=== PATIENT | female | born 1995 | race Caucasian/White ===

== ENCOUNTER → 2023-09-21 14:56 | Outpatient (REF) | payer BC, SELFPAY | LOC: PNTC 14:56 | PROVIDERS: ATTENDING PHYSICIAN Obstetrics & Gynecology | DX: Z36.0 Encounter for antenatal screening for chromosomal anomalies (principal); Z36.82 Encounter for antenatal screening for nuchal translucency | CPT/HCPCS: 76801; 76813 ==

== ENCOUNTER → 2023-11-09 15:57 | Outpatient (REF) | payer BC, SELFPAY | LOC: PNTC 15:57 | PROVIDERS: ATTENDING PHYSICIAN Obstetrics & Gynecology | DX: Z36.0 Encounter for antenatal screening for chromosomal anomalies (principal); Z34.90 Encounter for supervision of normal pregnancy, unspecified, unspecified trimester | CPT/HCPCS: 76805 ==

== ENCOUNTER 2024-03-26 19:34 | Inpatient (IN) | payer BC, SELFPAY ==
[2024-03-26 20:08] LABS: % Basophils 0.3 % (0-2); % Eosinophils 1.3 % (0-6); % Immature Granulocytes 1.1 % (0-0.5); % Monocytes 12.2 % (1.7-9.3); % Neutrophils 61.1 % (42.2-75.2); Absolute Eosinophils 0.1 10^3/uL (0-0.7); Absolute Immature Granulocytes 0.1 10^3/uL (0-0.05); Absolute Lymphocytes 2.5 10^3/uL (1.2-3.4); Absolute Monocytes 1.3 10^3/uL (0.1-0.6); Absolute Neutrophils 6.4 10^3/uL (1.4-6.5); Hematocrit 37.6 % (37.0-47.0); Hemoglobin 13.4 g/dL (12.0-16.0); Mean Corp Hgb Conc. 35.6 g/dL (33.0-37.0); Mean Corpuscular Hgb 35.3 pg (27.0-31.0); Mean Corpuscular Volume 98.9 fL (81.0-99.0); Mean Platelet Volume 9.4 fL (7.4-10.4); Nucleated Red Blood Cells % 0 %; Platelet Count 189 10^3/uL (130-400); White Blood Cell Count 10.5 10^3/uL (4.8-10.8)
[2024-03-26 20:20] VITALS: BP 115/91; BMI 27.5
[2024-03-26] MEDS: CYTOTEC 50 MICROGRAM VAG (21:28)
[2024-03-27] MEDS: SUBLIMAZE 100 MCG EPIDURAL (04:24)
[2024-03-27] MEDS: FENTANYL/BUPIVACAINE 100 EPIDURAL (04:24)
[2024-03-27] MEDS: PITOCIN 30 UNITS/NSS 500 ML IV (05:34)
[2024-03-27] MEDS: LR 1000 IV (05:34)
[2024-03-27] MEDS: MOTRIN 600 MG PO ×2 (09:28→16:01)
[2024-03-27] MEDS: SENOKOT-S 1 TABLET PO (12:15)
[2024-03-27] MEDS: TYLENOL 650 MG PO (20:30)
[2024-03-28] MEDS: MOTRIN 600 MG PO ×2 (00:38→09:12)
[2024-03-28 04:58] LABS: Hematocrit 30.7 % (37.0-47.0); Hemoglobin 11.1 g/dL (12.0-16.0)
[2024-03-28] MEDS: SENOKOT-S 1 TABLET PO (09:13)
[2024-03-28 11:31] LABS: Syphilis/T. pallidum Ab Reflex Negative (Negative)
== END 2024-03-28 12:19 | disposition home or self-care (01) | DRG 807 ==
LOC: LDRP 19:34
PROVIDERS: ADMITTING PHYSICIAN Obstetrics & Gynecology; FAMILY PHYSICIAN Family Medicine
PROC: 3E0P7VZ Introduction of Hormone into Female Reproductive, Via Natural or Artificial Opening (ICD-10-PCS; 2024-03-26)
PROC: 4A1HXCZ Monitoring of Products of Conception, Cardiac Rate, External Approach (ICD-10-PCS; 2024-03-27)
PROC: 0HQ9XZZ Repair Perineum Skin, External Approach (ICD-10-PCS; 2024-03-27)
PROC: 10E0XZZ Delivery of Products of Conception, External Approach (ICD-10-PCS; 2024-03-27)
PROC: 0UQG7ZZ Repair Vagina, Via Natural or Artificial Opening (ICD-10-PCS; 2024-03-27)
DX: O48.0 Post-term pregnancy (principal); Z37.0 Single live birth; O70.0 First degree perineal laceration during delivery; Z3A.40 40 weeks gestation of pregnancy
CPT/HCPCS: 36415; 85014; 85018; 85025; 86780; 86850; 86900; 86901

== ENCOUNTER 2025-01-13 13:53 | Emergency (ER) | payer BC, SELFPAY ==
[2025-01-13 14:07] VITALS: BP 126/82
--- NOTE | 2025-01-13 15:08 | ED.GENMED ---
History of Present Illness
General
Chief Complaint: Swelling
Time Seen by Provider: 01/13/25 15:08
History of Present Illness
History of Present Illness:
FOCUSED PAST MEDICAL HISTORY
- The patient has no significant past medical history
REVIEW OF OLD RECORDS
- The patient was here and gave here in March 2024
Note:
CHIEF COMPLAINT(S)
Swelling and tingling sensation in the right forearm.
HISTORY OF PRESENT ILLNESS
The patient is a 30-year-old female who has presented with concerns of swelling and a tingling sensation in the right forearm. These symptoms began approximately one hour prior while she was showering. The patient describes the swelling as appearing
suddenly with visible swelling and a lump-like formation mostly in the forearm area. She noted a tingling and numb sensation associated with the swelling, though she reports no recent intravenous access or associated trauma. She expresses concern
about the possibility of a blood clot but reports that the swelling has since improved significantly. Upon examination, the patient denies any associated rash or itching. The possibility of an allergic reaction was considered, but is deemed unlikely
due to the absence of itching. The patient had recently been exercising but did not perform activities specifically involving the arms. The forearm feels slightly warmer to the touch near the right elbow compared to the left side, prompting
consideration of possible cellulitis or bursitis. The patient is and is willing to start antibiotics.
REVIEW OF SYSTEMS
- Skin: Swelling and warmth noted in the right forearm, described as a lump.
- Neurological: Tingling sensation in the affected area which has improved.
- Musculoskeletal: Mild tenderness noted, especially with movement.
PHYSICAL EXAM
General: Alert, no acute distress.
Skin: Warm to touch near the right elbow compared to the opposite side, no rash.
Head: Normocephalic, atraumatic.
Neck: Supple, trachea midline.
Eye Ears, nose, mouth and throat: Oral mucosa moist.
Cardiovascular: Normal peripheral perfusion, no edema.
Respiratory: Respirations are non-labored.
Gastrointestinal: Abdomen nondistended.
Back: Normal range of motion, normal alignment.
Musculoskeletal: I see no circumferential size difference between both upper extremities, there is some warmth near the elbow/proximal right forearm however there is no overlying erythema and only minimal if any tenderness., No evidence for
olecranon bursitis. No significant bony tenderness. The active range of motion is fairly normal.
Neurological: Alert and oriented to person, place, time, and situation, no focal neurological deficit observed.
Psychiatric: Cooperative, appropriate mood & affect.
PROBLEM LIST
- Acute: Swelling and warmth in the right forearm with tingling sensation. Possible cellulitis or bursitis.
PLAN
- Initiate antibiotic therapy with a dose safe for to address possible cellulitis.
- Monitor symptoms for improvement over the next few days.
- Patient instructed to return to the ER if symptoms worsen or new symptoms develop.
- Defer ultrasound unless symptoms persist or worsen.
DIFFERENTIAL DIAGNOSIS
The Differential Diagnosis includes, in no particular order and is not limited to:
1. Cellulitis
2. Bursitis
3. Allergic reaction
4. Superficial thrombophlebitis
5. Deep vein thrombosis (unlikely)
6. Contact dermatitis
7. Musculoskeletal strain
8. Lymphedema
9. Tendonitis
10. Infection from gym exposure
RADIOLOGY
- X-ray of the right elbow was obtained which does show some soft tissue swelling but no clear bony abnormality
UPDATE
-SUMMARY OF ENCOUNTER
The patient, a 30-year-old female, presented to the emergency department with swelling and a tingling sensation in the right forearm, which started while showering. There was sudden visible swelling and a lump-like formation, primarily in the
forearm area, with associated tingling. The patient had been exercising recently but without specific involvement of the arms. Initial concerns were raised about possible blood clotting, but upon examination and her history, the probability of a
deep vein thrombosis (DVT) was considered extremely unlikely. Symptoms showed significant improvement prompting a decision to defer ultrasound imaging. Mild tenderness and warmth were noted near the right elbow. Considering the possibility of
cellulitis, antibiotic therapy was initiated.
ASSESSMENT
Acute swelling and warmth in the right forearm with a tingling sensation, potentially due to cellulitis or bursitis.
PLAN
Initiate antibiotic therapy to address potential cellulitis, ensuring the medication is safe for . Instruct the patient to monitor symptoms closely and advise returning to the emergency department if symptoms worsen or new symptoms
develop. Defer ultrasound imaging unless symptoms persist or worsen.
PATIENT EDUCATION AND COUNSELING
Patient was educated about recognizing symptoms of worsening conditions, such as increased pain, warmth, redness, and informed about the need to return to the emergency department if conditions deteriorate.
FOLLOW-UP INSTRUCTIONS
The patient was instructed to monitor symptoms and return to the ER if there is worsening or development of new symptoms
MEDICATION RECONCILIATION
Antibiotics were prescribed to address potential cellulitis, ensuring safety during .
MEDICAL DECISION MAKING
-Complexity of Data Reviewed: Differential diagnosis includes cellulitis, bursitis, allergic reactions, superficial thrombophlebitis, DVT (unlikely), contact dermatitis, musculoskeletal strain, lymphedema, tendonitis, and infection from gym exposure.
-Data:
Category 1
The consideration of ultrasound imaging was deferred based on the low suspicion of DVT and absence of risk factors.
-Risk:
Consideration of Admission/Observation: Escalation of care was considered because of the complexity and risk of the patients presenting complaint. Ultimately, the patient is safe for outpatient management with close follow-up. Reasoning: The workup
is reassuring, does not reveal any acute life/organ threatening processes, with symptoms being well-managed, stable vitals, and patient agreeable with discharge.
DIAGNOSIS
- Cellulitis, unspecified (ICD-10: L03.90)
Phy Exam
Physical Exam
Physical Exam:
See HPI
Course
Orders/Labs/Results
Orders:
Orders
01/13/25 14:09
Elbow, Right 3 View [CR Elbow - Right Min 3 Views] Urgent
Comment:
Reason For Exam: swelling, pain
01/13/25 15:21
Cephalexin Monohydrate [Keflex] 500 mg PO NOW STA
Vital Signs
Initial and Last Documented VS:
Initial Vital Signs
Temp Pulse Resp BP Pulse Ox
36.6 C 97 16 126/82 98
01/13/25 14:07 01/13/25 14:07 01/13/25 14:07 01/13/25 14:07 01/13/25 14:07
Last Documented Vital Signs
Temp Pulse Resp BP Pulse Ox
36.6 C 97 16 126/82 98
01/13/25 14:07 01/13/25 14:07 01/13/25 14:07 01/13/25 14:07 01/13/25 15:10
*Pulse Oximetry
SaO2: 98
Oxygen Mode of Delivery: Room air
Patient hypoxic: no
*Critical Care Note
Total Time (30-74mins, 75-104mins- exclusive of procedures): Not Applicable
ED Attending Note
-
Portions of this chart may have been created with voice recognition software.� Occasional wrong word or��sound alike� substitutions may have occurred due to the inherent limitations of voice recognition software.
Discharge Plan
Departure
Patient Disposition: Home (Routine Discharge)
Date of Disposition: 01/13/25
Time of Disposition: 15:22
Patient with high blood pressure during this ER visit?: Yes
Discharge Problem:
Cellulitis
Instructions: Cellulitis (skin infection) in adults (DC), BLOOD PRESSURE
Prescriptions:
New
cephalexin 500 mg tablet
500 mg PO TID Qty: 21 0RF
No Action
[id number]-vvt-[id number] 1 mg Tablet
1 tab PO DAILY
Zyrtec 10 mg Capsule
10 mg PO DAILY
acetaminophen 325 mg Tablet
650 mg PO Q4HPRN PRN (Reason: mild pain) Qty: 0 0RF
sennosides-docusate sodium 8.6-50 mg Tablet
1 tab PO DAILYPRN PRN (Reason: constipation) Qty: 0 0RF
calcium carbonate [Calcium Antacid] 200 mg calcium (500 mg) Tablet,Chewable
400 mg PO Q6HPRN PRN (Reason: indigestion) Qty: 0 0RF
ibuprofen 600 mg Tablet
600 mg PO Q6HPRN PRN (Reason: moderate pain/cramps) Qty: 45 0RF
Activity Restrictions/Additional Instructions:
I sent a prescription for Keflex to your pharmacy. Return here if worse or other concerns.
Interventions
Interventions:
*Risk Screen - Suicide Last Done: 01/13/25 14:07
*Neglect/Abuse Screening Last Done: 01/13/25 14:07
Discharge Date and Time
Print Language: ALB[place]
[2025-01-13] MEDS: KEFLEX 500 MG PO (15:34)
== END 2025-01-13 17:21 | disposition home or self-care (01) ==
LOC: EMR 13:53
PROVIDERS: EMERGENCY PHYSICIAN Emergency Medicine
DX: L03.113 Cellulitis of right upper limb (principal)
CPT/HCPCS: 99284; 73080; 93971